=== PATIENT | female | born 2000 | race Caucasian/White ===

== ENCOUNTER 2019-06-17 15:23 | Emergency (ER) | payer BC ==
[~2019-06-17] VITALS: Ht 177.8 cm; Wt 63.6 kg
[2019-06-17 15:32] VITALS: BP 128/82; TEMP 97.9
[2019-06-17] MEDS ORDERED: JUNEL 1.5 MG-31 EACH PO (15:46)
[2019-06-17 16:55] VITALS: PULSE 68
== END 2019-06-17 16:55 | disposition home or self-care (01) ==
LOC: COL.ER 15:23
DX: S62.637A Displaced fracture of distal phalanx of left little finger, initial encounter for closed fracture (principal); W23.0XXA Caught, crushed, jammed, or pinched between moving objects, initial encounter; Y92.009 Unspecified place in unspecified non-institutional (private) residence as the place of occurrence of the external cause